=== PATIENT | female | born 1955 | race Caucasian/White ===

== ENCOUNTER 2019-10-19 13:57 | Outpatient (CLI) | payer BC, SELFPAY ==
--- NOTE | ~2019-10-19 | MM_ITS ---
EXAMINATION: MM screening shayan BI w monika HISTORY: Screening mammogram, family history of breast cancer in her sister. TECHNIQUE: Craniocaudal and mediolateral oblique 3-D tomosynthesis images were obtained and synthetic 2-D images were generated. CAD analysis was submitted and interpreted. COMPARISON: 08/25/2018, 07/25/2018 BREAST PARENCHYMAL COMPOSITION: There are scattered areas of fibroglandular density. FINDINGS: There is no evidence of suspicious mass, calcification, or architectural distortion to sugg est malignancy in either breast. There has been no suspicious interval change. IMPRESSION: 1. No mammographic evidence of malignancy. 2. Recommend routine screening mammography in one year. BI-RADS Category 1: Negative Reviewed, dictated and finalized at location A.
== END 2019-10-19 13:58 | disposition home or self-care (01) ==
LOC: ANHIMG 14:02
PROVIDERS: PCP Nurse Practitioner Family; Visit Provider Nurse Practitioner Family
DX: Z12.31 Encounter for screening mammogram for malignant neoplasm of breast (principal)
CPT/HCPCS: 77063; 77067

== ENCOUNTER 2020-10-24 10:35 | Outpatient (CLI) | payer BC, SELFPAY ==
--- NOTE | ~2020-10-24 | MM_ITS ---
EXAMINATION: MM screening shayan BI w monika HISTORY: Screening TECHNIQUE: Craniocaudal and mediolateral oblique 3-D tomosynthesis images were obtained and synthetic 2-D images were generated. CAD analysis was submitted and interpreted. COMPARISON: No prior mammogram is available for comparison at this institution. BREAST PARENCHYMAL COMPOSITION: The breasts are heterogeneously dense, which may obscure small masses . FINDINGS: There is no evidence of suspicious mass, calcification, or architectural distortion to sugg est malignancy in either breast. There has been no suspicious interval change. IMPRESSION: 1. No mammographic evidence of malignancy. 2. Recommend routine screening mammography in one year. BI-RADS Category 1: Negative Reviewed, dictated and finalized at location A.
== END 2020-10-24 10:36 | disposition home or self-care (01) ==
LOC: ANHIMG 10:38
PROVIDERS: PCP Nurse Practitioner Family; Visit Provider Nurse Practitioner Family
DX: Z12.31 Encounter for screening mammogram for malignant neoplasm of breast (principal)
CPT/HCPCS: 77063; 77067

== ENCOUNTER 2020-12-11 13:36 | Emergency (ER) | payer BC, SELFPAY ==
--- NOTE | ~2020-12-11 | XR_ITS ---
EXAMINATION: XR forearm RT 2V DATE: 12/11/2020 14:05 INDICATION: Right forearm injury and pain. TECHNIQUE: 2 views of right forearm were obtained. COMPARISON: None. FINDINGS: Bone alignment is normal. No visible fracture. There is mild osteoarthritis of first carpom etacarpal joint. There are enthesophytes at the medial and lateral humeral epicondyles. There is an e lbow joint effusion. IMPRESSION: 1. Elbow joint effusion. No fracture identified. Reviewed, dictated and finalized at location A.
--- NOTE | ~2020-12-11 | XR_ITS ---
EXAMINATION: XR hand RT min 3V DATE: 12/11/2020 14:51 INDICATION: Right hand pain. Fall. TECHNIQUE: 3 views of right hand were obtained. COMPARISON: None. FINDINGS: There is radial subluxation and angulation of the second, third, and fourth distal phalange s with respect to the middle phalanges. No fracture. There is mild osteoarthritis of first carpometac arpal joint. There is mild to moderate osteoarthritis of many of the metacarpophalangeal joints and i nterphalangeal joints. There is severe osteoarthritis of third metacarpophalangeal joint and second-f ifth distal interphalangeal joints. IMPRESSION: 1. Polyarticular osteoarthritis. Reviewed, dictated and finalized at location A.
[2020-12-11 13:51] VITALS: BP 127/71; PULSE 82; RESP 19; TEMP 36.3; O2SAT 100
--- NOTE | 2020-12-11 14:34 | ED.UPPEXIN ---
HPI - Extremity Injury (Upper) General Chief Complaint: Extremity Injury, Upper Stated Complaint: Right hand and arm Pain Time Seen by Provider: 12/11/20 14:25 Source: patient and RN notes reviewed Mode of arrival: ambulatory Limitations: no limitations History of Present Illness HPI narrative: 65 year old female who presents to [facility] care with complaints of falling last night and she tried to catch herself with outstretched arms and she reports landing on to her right arm. She reports pain from distal humerus to tips of her fingers on her right hand. Patient has no obvious deformity but pain with any movement, circulation and sensation is intact to her right arm.Patient is guarding her right arm. MD complaint: injury to: right, elbow, forearm and hand Onset (ago): day(s) (last night) Severity: moderate Severity scale (1-10): 5 Related Data Home Medications Medication Instructions Recorded Confirmed celecoxib 100 mg PO DAILY 12/11/20 12/11/20 ropinirole 0.25 mg PO DAILY 12/11/20 12/11/20 Allergies Allergy/AdvReac Type Severity Reaction Status Date / Time Sulfa (Sulfonamide Allergy Mild Unknown Verified 12/11/20 13:53 Antibiotics) Review of Systems Review of Systems: CONSTITUTIONAL: Denies fever, chills, or sweats. EYES: Denies visual changes, redness, or discharge. ENT: Denies rhinorrhea, congestion, sore throat, or otalgia. CARDIOVASCULAR: Denies chest pain, palpitations, or edema. RESPIRATORY: Denies cough or dyspnea. GASTROINTESTINAL: Denies abdominal pain, nausea, vomiting, or diarrhea. GENITOURINARY: Denies dysuria or hematuria. SKIN: Denies rash or itching. MUSCULOSKELETAL: Denies back pain, positive for right arm pain from distal humerus to tips of finger with increase pain with any movement. NEUROLOGIC: Denies headache, numbness, or weakness. PSYCHIATRIC: Denies anxiety or depression. All systems reviewed & are unremarkable except as noted in HPI and below PMFSH Past Medical History Medical History (Updated 12/16/20 @ 07:38 by Magdalene Shannon NP) Arthritis Restless leg syndrome Surgical History Surgical History (Updated 12/16/20 @ 07:41 by Magdalene Shannon NP) History of repair of right rotator cuff Hx of tonsillectomy Tubal ligation status Social History Social History (Updated 12/16/20 @ 07:41 by Magdalene Shannon NP) Smoking status: Never smoker Alcohol intake: current Alcohol use details: social Substance use: never Living arrangements: with family Gender identity (if verbalized by the patient): Female Comments At time of signature, agree with nursing past medical, surgical, social and family history. There is no relevant family history pertinent to the presenting complaint Exam Narrative: GENERAL: Well-appearing, well-nourished, and in no acute distress. HEAD: Normocephalic, atraumatic. EYES: PERRLA and EOMI. ENT: Nares clear, no rhinorrhea or epistaxis. Mucous membranes moist.TM's normal throat pink with no lesions or exudates, tonsils absent. NECK: Supple.no lymphadenopathy CHEST: Clear to auscultation. No respiratory distress.SAO2 100% on room air HEART: Regular rate and rhythm. No murmur heard. Normal peripheral pulses. ABDOMEN: Soft, nontender, nondistended, normal active bowel sounds. EXTREMITIES: Normal range of motion. No edema.Exception noted to right arm and hand which patient states pain from distal humerus to tips of fingers of right hand, strong pulses to right arm, nail beds have brisk capillary refill, no obvious deformity to right arm and hand, no numbness or tingling of right arm SKIN: Warm, dry, no rash. NEURO: No focal deficits. Alert and oriented x3. Course Vital Signs Vital signs: Vital Signs Temperature 36.3 C L 12/11/20 13:51 Pulse Rate 82 12/11/20 13:51 Respiratory Rate 19 12/11/20 13:51 Blood Pressure 127/71 12/11/20 13:51 Pulse Oximetry 100 12/11/20 13:51 Temperature 36.3 C L 12/11/20 13:51 Pulse Rate 82
== END 2020-12-11 15:32 | disposition home or self-care (01) ==
PROVIDERS: Emergency Provider Registered Nurse; PCP Nurse Practitioner Family
DX: M25.421 Effusion, right elbow (principal); M79.641 Pain in right hand; M19.90 Unspecified osteoarthritis, unspecified site; G25.81 Restless legs syndrome
CPT/HCPCS: 73090; 73130; 99213; G0463

== ENCOUNTER 2021-02-19 13:04 | Emergency (ER) | payer BC, SELFPAY ==
--- NOTE | ~2021-02-19 | XR_ITS ---
EXAMINATION: XR ankle RT min 3V INDICATION: Right ankle pain, initial encounter TECHNIQUE: Four views of the right ankle are obtained. COMPARISON: None available FINDINGS: There is an acute, traumatic, oblique fracture of the medial malleolus which extends to the level of the tibial plafond. There is an acute avulsion injury at the tip of the lateral malleolus. Soft tissue swelling surrounds the fractures. The ankle mortise is intact. No additional acute osseou s findings are evident. IMPRESSION: 1. Oblique fracture of the medial malleolus and avulsion fracture at the tip of the lateral malleolus . Reviewed, dictated and finalized at location A. GER COMPENSATION IMPRESSION: 1. Oblique fracture of the medial malleolus and avulsion fracture at the tip of the lateral malleolus.
[2021-02-19 13:14] VITALS: BP 143/70; PULSE 84; RESP 16; TEMP 36.6; O2SAT 98
--- NOTE | 2021-02-19 13:14 | ED.LOWEXIN ---
HPI - Extremity Injury (Lower) General Chief Complaint: Extremity Injury, Lower Stated Complaint: Right ankle Pain Time Seen by Provider: 02/19/21 13:15 Source: patient and RN notes reviewed Mode of arrival: ambulatory Limitations: no limitations History of Present Illness HPI Narrative: 65-year-old female presents to the [facility] with right ankle pain. Patient states that she missed a step and rolled her ankle inversely yesterday. Denies any neck pain or back pain. Denies hitting head or loss of consciousness. Patient states that she has been icing it and elevating it. Bruising swelling noted to the entire ankle both lateral and medial along with the foot. Sensation intact. Positive pedal pulse. Capillary refill under 2 seconds. Patient has a history of arthritis, denies any other past medical or surgical history Related Data Home Medications Medication Instructions Recorded Confirmed celecoxib 100 mg PO DAILY 12/11/20 02/19/21 ropinirole 0.25 mg PO DAILY 12/11/20 02/19/21 Allergies Allergy/AdvReac Type Severity Reaction Status Date / Time Sulfa (Sulfonamide Allergy Mild Unknown Verified 02/19/21 13:28 Antibiotics) tramadol Allergy Other Verified 02/19/21 13:44 Review of Systems Review of Systems: All systems reviewed & are unremarkable except as noted in HPI and below Constitutional: Constitutional: Reports no additional constitutional complaints, Denies chills and Denies fever(s) Eyes: Eyes: Reports no additional eye complaints ENT: Reports system reviewed and no additional complaints, except as documented Cardiovascular: Cardiovascular: Reports no additional cardiovascular complaints Respiratory: Respiratory: Reports no additional respiratory complaints Musculoskeletal: Musculoskeletal: Reports as per HPI, Reports arthralgias and Reports joint swelling Comments: Right ankle pain Integumentary/Breasts: Skin/Breast: Reports system reviewed and no additional complaints, except as docu Neurologic: Reports system reviewed and no additional complaints, except as documented Psychiatric: Psychiatric: Reports no additional psychiatric complaints Allergic/Immunologic: Allergic/Immunologic: Reports no additional allergic/immunologic complaints PMF Past Medical History Medical History (Updated 02/19/21 @ 13:43 by Colleen Shah) Arthritis Restless leg syndrome Surgical History Surgical History History of repair of right rotator cuff Hx of tonsillectomy Tubal ligation status Social History Social History Smoking status: Never smoker Alcohol intake: current Alcohol use details: social Substance use: never Gender identity (if verbalized by the patient): Female Comments At the time of my signature, I reviewed and agree with the nursing past medical, surgical, social, and family history. There is no relevant family history pertinent to the patient complaint. Exam Const: General: healthy appearing, no acute distress and alert Nutritional Appearance: well nourished Orientation/consciousness: patient oriented x3 Limitations: no limitations HENMT: Head: normal to inspection Ears: external ears normal Eyes: Pupils: Equal, round and reactive pupils present Neck: Neck: normal visual inspection, no lymphadenopathy and no meningeal signs Chest: Chest palpation & inspection: normal inspection of the chest Resp: Effort & Inspection: normal respiratory effort Cardio: Rate: regular rate Rhythm: regular rhythm Back/Spine/Pelvis: Back: no CVA tenderness Skin: General skin exam: normal color Wounds: no wounds Neuro: General: patient oriented x3, moves all extremities, no meningeal signs and no focal motor deficits Speech: normal speech Gait exam (Neuro): gait abnormal (Unable to bear weight right side due to right ankle pain) Extrem: General: normal to inspection Right lower
== END 2021-02-19 14:15 | disposition home or self-care (01) ==
PROVIDERS: Emergency Provider Nurse Practitioner; PCP Nurse Practitioner Family
DX: S82.54XA Nondisplaced fracture of medial malleolus of right tibia, initial encounter for closed fracture (principal); S82.61XA Displaced fracture of lateral malleolus of right fibula, initial encounter for closed fracture; X50.9XXA Other and unspecified overexertion or strenuous movements or postures, initial encounter; M19.90 Unspecified osteoarthritis, unspecified site; G25.81 Restless legs syndrome
CPT/HCPCS: 29515; 73610; 99214; G0463

== ENCOUNTER → 2021-10-12 08:58 | Outpatient (CLI) | payer BC, SELFPAY ==
--- NOTE | ~2021-10-12 | XR_ITS ---
XR cervical spine 4-5V DATE: 10/12/2021 11:04 INDICATION: Neck pain. No injury. TECHNIQUE: AP, open-mouth, odontoid, lateral and swimmer views COMPARISON: None FINDINGS: Diffuse osteopenia. There is 2.5 mm anterolisthesis and mild degenerative disc disease at C4-5. There is severe degenerative disc disease and minimal retrolisthesis at C5-6 and C6-7. There is degenerative change at the apophyseal joints throughout the cervical spine and prominent unc overtebral joint spurring bilaterally at C5-6 and C6-7. C1 and C2 are normally aligned and the odontoid process is intact. No fracture or dislocation, locked facet or prevertebral soft tissue swelling. IMPRESSION: Osteopenia No fracture is detected 2.5 mm anterolisthesis and mild degenerative disc disease at C4-5 Prominent cervical spondylosis, including severe degenerative disc disease and mild retrolisthesis at C5-6 and C6-7, degenerative change throughout the apophyseal joints and prominent uncovertebral join t spurring at C5-6 and C6-7 Reviewed, dictated and finalized at location A. IMPRESSION: Osteopenia No fracture is detected 2.5 mm anterolisthesis and mild degenerative disc disease at C4-5 Prominent cervical spondylosis, including severe degenerative disc disease and mild retrolisthesis at C5-6 and C6-7, degenerative change throughout the apophy seal joints and prominent uncovertebral joint spurring at C5-6 and C6-7
--- NOTE | ~2021-10-12 | XR_ITS ---
XR lumbar spine min 4V DATE: 10/12/2021 11:04 INDICATION: Back pain. No injury. TECHNIQUE: AP, lateral, coned lateral lumbosacral and bilateral oblique views COMPARISON: None FINDINGS: There is mild dextro scoliosis of the lumbar spine. Diffuse osteopenia. Degenerative spurring of lower thoracic spine Moderately severe degenerative disc disease at L1-2. Mild degenerative disc disease at L2-3 Moderately prominent degenerative disease at L3-4, L4-5 Severe degenerative disease at L5-S1. There is degenerative change at the apophyseal joints particularly the mid and lower lumbar and lumbo sacral area but no spondylolisthesis. No fracture or bone destruction is evident. The included lower thoracic and lumbar pedicles are intac t. The sacroiliac joints are intact. Abdominal aortic calcification without evidence of aneurysm. IMPRESSION: Mild lumbar dextro scoliosis Osteopenia Degenerative changes of the lower thoracic and lumbar spine, including multilevel degenerative disc d isease of the lumbar spine, most severe at L1-2, L3-4 and L5-S1 Reviewed, dictated and finalized at location A. IMPRESSION: Mild lumbar dextro scoliosis Osteopenia Degenerative changes of the lower thoracic and lumbar spine, including multilev el degenerative disc disease of the lumbar spine, most severe at L1-2, L3-4 and L5-S1
--- NOTE | ~2021-10-12 | XR_ITS ---
XR hand BI arthritis min 3V DATE: 10/12/2021 11:04 INDICATION: Osteoarthritis TECHNIQUE: 4 views of each hand COMPARISON: 12/11/2020 right hand FINDINGS: Right hand: Diffuse osteopenia. No fracture or dislocation, periosteal reaction or bone destruction, erosive change or chondrocalcino sis. There is polyarticular osteoarthritis including first carpometacarpal joint, first through fourth met acarpophalangeal joints, most severe at the third. There is osteoarthritic change at the interphalang eal joints, particularly distal interphalangeal joints. Again noted is radial mild subluxation at apex medial angulation at the distal interphalangeal joints of the second through fourth digits. Left hand: Diffuse osteopenia. Mild osteophytic change at the first carpometacarpal joint. There is osteophytic change at the second through fourth metacarpophalangeal joints, but likely the third. There is osteoporotic change at the interphalangeal joints, particularly distal interphalangeal joint s of the second through fifth digits. No fracture, dislocation, periosteal reaction or bone destruction, erosive change or chondrocalcinosi s. IMPRESSION: Polyarticular osteoarthritis Reviewed, dictated and finalized at location A.
--- NOTE | ~2021-10-12 | XR_ITS ---
XR sacroiliac joints min 3V DATE: 10/12/2021 11:04 INDICATION: Osteoarthritis TECHNIQUE: AP and bilateral oblique views of the sacroiliac joints COMPARISON: None FINDINGS: Dextroscoliosis of the lumbar spine. There is moderately severe degenerative disease at L3-4, moderate moderate degenerative disc disease L4-5 and severe degenerative disease at L5-S1. The pubic symphysis and sacral iliac joints are intact. No pelvic fracture or bone destruction is det ected. No fracture, dislocation, erosive change or ankylosis at the sacroiliac joints. IMPRESSION: Unremarkable sacroiliac joints Multilevel degenerative disc disease and dextroscoliosis of the lumbar spine Reviewed, dictated and finalized at Location A. Reviewed, dictated and finalized at location A.
== END ==
PROVIDERS: PCP Nurse Practitioner Family; Visit Provider Internal Medicine
DX: M19.041 Primary osteoarthritis, right hand (principal); M19.042 Primary osteoarthritis, left hand; M51.36 Other intervertebral disc degeneration, lumbar region; M85.88 Other specified disorders of bone density and structure, other site; M47.892 Other spondylosis, cervical region; M50.323 Other cervical disc degeneration at C6-C7 level
CPT/HCPCS: 72050; 72110; 72202; 73130

== ENCOUNTER 2021-12-27 13:35 | Outpatient (CLI) | payer BC, SELFPAY ==
--- NOTE | ~2021-12-27 | MM_ITS ---
EXAMINATION: MM screening shayan BI w monika HISTORY: Screening mammogram, family history of breast cancer in her sister. TECHNIQUE: Craniocaudal and mediolateral oblique 3-D tomosynthesis images were obtained and synthetic 2-D images were generated. CAD analysis was submitted and interpreted. COMPARISON: 10/24/2020, 10/19/2019, 08/25/2018, 07/25/2018 BREAST PARENCHYMAL COMPOSITION: The breasts are heterogeneously dense, which may obscure small masses . FINDINGS: There is no suspicious mass, calcification, or architectural distortion to suggest malignan cy in either breast. There has been no suspicious interval change. IMPRESSION: 1. No mammographic evidence of malignancy. 2. Recommend routine screening mammography in one year. BI-RADS Category 1: Negative Reviewed, dictated and finalized at location A.
== END 2021-12-27 13:36 | disposition home or self-care (01) ==
PROVIDERS: PCP Nurse Practitioner Family; Visit Provider Nurse Practitioner Family
DX: Z12.31 Encounter for screening mammogram for malignant neoplasm of breast (principal)
CPT/HCPCS: 77063; 77067

== ENCOUNTER → 2023-01-10 07:48 | Outpatient (CLI) | payer BC, SELFPAY ==
--- NOTE | ~2023-01-10 | MR_ITS ---
MRI of the right shoulder Technique: Axial proton-density fat-sat images, coronal proton density fat-sat and T2 fat-sat images, and sagittal T1-weighted and T2 fat-sat images were acquired. Clinical History: Injury Findings: There is moderate AC joint degenerative change. Probable prior subacromial decompression. C oracoclavicular, coracoacromial, and coracohumeral ligaments are intact. Supraspinatus and infraspinatus tendons are intact, without partial or full-thickness tear. There is evidence of prior rotator cuff repair surgery, with suture anchor at the humeral head/greater tuberos ity. Subscapularis tendon is intact. Tendon of long head of the biceps is intact. There is degenerative superior labral tearing extending to the posterior superior portion. There is moderate to severe glenohumeral joint degenerative change, with inferomedial humeral head os teophyte, chondromalacia, and subchondral cystic change at the superior glenoid. Inferior glenohumeral ligament is intact. No significant glenohumeral joint effusion seen. No fluid d istention of the subacromial/subdeltoid bursa. No muscle atrophy or edema. Impression: Evidence of prior rotator cuff repair surgery and prior subacromial decompression. No recurrent rotat or cuff tear seen. Degenerative labral tearing at the superior portion extending to the posterior superior aspect. Moderate to advanced glenohumeral joint degenerative change. Reviewed, dictated and finalized at [facility]. Impression: Evidence of prior rotator cuff repair surgery and prior subacromial decompressi on. No recurrent rotator cuff tear seen. Degenerative labral tearing at the superior portion extending to the posterior superior aspect. Moderate to advanced glenohumeral joint degenerative change.
== END ==
PROVIDERS: Visit Provider Nurse Practitioner Family
DX: S49.91XA Unspecified injury of right shoulder and upper arm, initial encounter (principal); X58.XXXA Exposure to other specified factors, initial encounter
CPT/HCPCS: 73221

== ENCOUNTER 2023-06-10 15:10 | Outpatient (CLI) | payer MEDICARE, SELFPAY ==
--- NOTE | ~2023-06-10 | MM_ITS ---
EXAMINATION: MM screening shayan BI w monika HISTORY: Screening mammogram TECHNIQUE: Craniocaudal and mediolateral oblique 3-D tomosynthesis images were obtained and synthetic 2-D images were generated. Exaggerated lateral craniocaudal view] CAD analysis was submitted and int erpreted. COMPARISON: 12/27/2021, 10/24/2020, 10/19/2019 bilateral screening mammogram examinations BREAST PARENCHYMAL COMPOSITION: The breasts are heterogeneously dense, which may obscure small masses . FINDINGS: There is no evidence of suspicious mass, calcification, or architectural distortion to sugg est malignancy in either breast. There has been no suspicious interval change. IMPRESSION: 1. No mammographic evidence of malignancy. 2. Recommend routine screening mammography in one year. BI-RADS Category 1: Negative Reviewed, dictated and finalized at location A. [employer]PER[employer]
== END 2023-06-10 15:11 | disposition home or self-care (01) ==
LOC: ANHIMG 15:15
PROVIDERS: PCP Nurse Practitioner Family; Visit Provider Nurse Practitioner Family
DX: Z12.31 Encounter for screening mammogram for malignant neoplasm of breast (principal)
CPT/HCPCS: 77063; 77067

== ENCOUNTER 2024-10-30 09:51 | Emergency (ER) | payer MEDICARE, SELFPAY ==
[2024-10-30 10:01] VITALS: BP 150/79; PULSE 89; RESP 16; TEMP 36.8; O2SAT 100
--- NOTE | 2024-10-30 10:08 | ED_ITS ---
HPI - Back Pain/Injury General Chief Complaint: Back Pain/Injury Stated Complaint: Severe Back Pain Time Seen by Provider: 10/30/24 09:55 Source: patient Mode of arrival: ambulatory Limitations: no limitations History of Present Illness HPI Narrative: Patient is a 69-year-old female who presents with low back pain for the last week. Patient reports it is radiating down left hip to the left maciel. Patient states she was putting sheets on bed when simply started. Patient had lumbar surgery/fusion in 2023. Patient states she was released by her surgeon if in June after 1 year. Patient is able to ambulate unassisted. Patient does report decreased sensation on her lateral left thigh but is still able to move and bear weight normally. Patient called her PCP today and was told she did any open appointments and come to urgent care Related Data Home Medications ?Medication ?Instructions ?Recorded ?Confirmed ?Last Taken ?Type ropinirole 0.25 mg tablet 0.25 mg PO DAILY 12/11/20 10/30/24 02/19/21 History 0.25 mg alendronate 70 mg tablet 70 mg PO WEEKLY 04/20/21 02/14/23 Unknown History celecoxib 100 mg capsule 100 mg PO BID 04/20/21 02/14/23 Unknown History buspirone 10 mg tablet mg 10/30/24 Unknown History cyclobenzaprine 10 mg tablet mg 10/30/24 Unknown History diclofenac sodium 75 mg mg PO 10/30/24 Unknown History tablet,delayed release lisinopril 30 mg tablet mg 10/30/24 Unknown History oxybutynin chloride 5 mg mg PO 10/30/24 Unknown History tablet,extended release 24 hr ropinirole 2 mg tablet mg 10/30/24 Unknown History Allergies Allergy/AdvReac Type Severity Reaction Status Date / Time Sulfa (Sulfonamide Allergy Mild Unknown Verified 10/30/24 10:06 Antibiotics) tramadol Allergy Other Verified 10/30/24 10:06 poison satya extract AdvReac Intermediate n/a Verified 10/30/24 10:06 Review of Systems Review of Systems: All systems reviewed & are unremarkable except as noted in HPI and below Constitutional: Constitutional: Denies body ache(s), Denies chills, Denies fatigue, Denies fever(s), Denies headache(s), Denies malaise and Denies weakness Eyes: Eyes: Denies blurry vision, Denies irritation and Denies loss of vision ENT: Denies otalgia, Denies headache(s), Denies nasal discharge, Denies sinus pain and Denies sore throat Cardiovascular: Cardiovascular: Denies chest pain, Denies irregular heart rhythm and Denies dyspnea Respiratory: Respiratory: Denies dyspnea Gastrointestinal: Gastrointestinal: Denies abdominal pain, Denies melena, Denies hematochezia, Denies diarrhea, Denies nausea and Denies vomiting Musculoskeletal: Musculoskeletal: Reports back pain, Denies myalgias, Denies arthralgias and Reports numbness (Left thigh) Integumentary/Breasts: Skin/Breast: Denies pruritus and Denies rash Neurologic: Denies headache(s), Denies loss of vision and Denies weakness Psychiatric: Psychiatric: Reports no additional psychiatric complaints Endocrine: Endocrine: Denies fatigue PMFSH Past Medical History Medical History Inflammatory arthritis 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 Restless leg syndrome Surgical History Surgical History Tubal ligation status History of repair of right rotator cuff Hx of tonsillectomy Family History Family History Father Hypertension Cerebrovascular accident Other Depression Sibling Breast cancer Social History Social History Smoking status: Never smoker Alcohol intake: current Alcohol use details: social Substance use: never Substance use type: does not use Lack of Transportation: No Lack of Food: Never True Current Housing: I Have Housing Concerned About Future Housing: No Difficulty Paying Gas/Electric Bills: No Difficulty Paying for Meds: No Currently Unemployed: No Education: Decline to Answer Difficulty w/ Childcare or Family Care: No Living arrangements: with family Occupation/Education: occupation Gender identity (if verbalized by the patient): Female Comments At time of signature, agree with nursing past medical, surgical, social and family history. There is no relevant family history pertinent to the presenting complaint. Exam Const: General: cooperative, healthy appearing, comfortable, no acute distress and well nourished Nutritional Appearance: well nourished Orientation/consciousness: patient oriented x3 Limitations: no limitations HENMT: Head: normal to inspection, normocephalic and atraumatic Ears: hearing grossly normal bilaterally and external ears normal Face/Nose/Sinus: Normal external nose present, normal facial exam and face symmetric Face and sinus: normal facial exam and face symmetric Mouth: Yes lip normal Eyes: General: appearance normal, both eyes and all related structures Alignment and Position: alignment normal and position normal Periorbital: periorbital findings normal Eyelids: eyelids normal Pupils: Equal, round and reactive pupils present EOM: EOMs intact bilaterally Neck: Neck: normal visual inspection, full ROM and supple Chest: Chest palpation & inspection: normal inspection of the chest Resp: Effort & Inspection: normal respiratory effort and able to speak in complete sentences Auscultation: clear to auscultation bilaterally Cardio: Rate: regular rate Rhythm: regular rhythm Heart sounds: S1 normal heart sound present and S2 normal heart sound present GI: Inspection: normal to inspection Back/Spine/Pelvis: Thoracic/Lumbar Spine: thoracic and lumbar spine normal to inspection, pain with thoraco-lumbar ROM, paraspinal muscle tenderness on the left in the lower lumbar, No thoracic spinal tenderness and No lumbar spinal tenderness Pelvis: buttock tenderness on the left Sacroiliac joints: on the left tender to palpation Skin: General skin exam: normal color and no rashes or lesions noted Neuro: General: patient oriented x3 and moves all extremities Cranial nerves: Yes Equal, round and reactive pupils present Speech: normal speech Gait exam (Neuro): Normal gait present Extrem: General: normal to inspection, full ROM and no edema Psych: Appearance: grossly normal and well kempt Mental Status: mental status grossly normal Speech and movement: Normal speech and movement present Affect: normal affect Attitude: cooperative Thought process: Normal thought process present Course Course Emergency Course: Patient is aware of diagnosis, understands and agrees to treatment plan. Anticipatory guidance given. Patient agrees to follow-up as directed and is aware of reasons to seek care at the emergency department. Portions of this record may have been created with voice recognition software Level of Care: Express Care Visit Vital Signs Vital signs: Vital Signs Temperature 36.8 C 10/30/24 10:01 Pulse Rate 89 10/30/24 10:01 Respiratory Rate 16 10/30/24 10:01 Blood Pressure 150/79 H 10/30/24 10:01 Pulse Oximetry 100 10/30/24 10:01 Oxygen Delivery Room Air 10/30/24 10:01 Temperature 36.8 C 10/30/24 10:01 Pulse Rate 89 10/30/24 10:01 Respiratory Rate 16 10/30/24 10:01 Blood Pressure 150/79 H 10/30/24 10:01 Pulse Oximetry 100 10/30/24 10:01 Oxygen Delivery Room Air 10/30/24 10:01 Reviewed MDM - Back Pain/Injury MDM Narrative Medical decision making narrative: Discussed in-depth about the need for close follow-up with PCP and potentially her spinal surgeon. Patient states she called her her spinal surgeon and they told her she was no longer an active patient and had to have a new referral by her PCP. Instructed patient to call and make an appointment for Saturday with her PCP. Patient has been taking Tylenol with no relief but is unable to take ibuprofen since she takes diclofenac. Patient did also have recent steroid course less than a month ago, will not repeat steroids. Will prescribe baclofen and lidocaine patches. Discussed risks and benefits of all medications. No risk factors or findings concerning for epidural abscess, diskitis, vertebral osteomyelitis, cord compression, cauda equina, vertebral fracture or bone malignancy, AAA, or pyelonephritis. Pt well hydrated appearing, in no respiratory distress, hemodynamically stable. Recommend supportive care. The patient is stable at time of discharge the clinical impression was discussed and the patient was given the opportunity to ask questions, which were addressed as completely as possible given the information available at present. Anticipatory guidance and return to care precautions were discussed and the importance of primary care follow-up was stressed and encouraged since she may require further imaging and workup. The patient voiced understanding of the plan, indications to return, and the need for follow-up Patient is appropriate for outpatient treatment and follow-up. Differential Diagnosis Differential diagnosis: Likely lumbar radiculopathy, sciatica and strain of lumbar region Medical Records Attestation: I reviewed the patient's medical records. Discharge Plan Discharge Clinical Impression: Lumbar radiculopathy Sciatica Qualifiers: Laterality: left Qualified Code(s): M54.32 - Sciatica, left side Patient Disposition: Home Condition: Stable Instructions: Sciatica (ED), Lumbar Radiculopathy (ED) Additional Instructions: Continue to take Tylenol and your home diclofenac, take muscle relaxers every 8 hours as needed for muscle spasm. do not drive or make any important decisions while on this medication for it can make you drowsy. Use lidocaine patches 12 hours on and 12 hours off. Exercise:Combine aerobic exercise, like walking or swimming, with specific exercises to keep the muscles in your back and abdomen strong and flexible.bed rest is not recommended. Proper Lifting:Be sure to lift heavy items with your legs, not your back. Do not bend over to pick something up. Keep your back straight and bend at your knees. Weight:Maintain a healthy weight. Being overweight puts added stress on your lower back. Avoid Smoking:Both the smoke and the nicotine cause your spine to age faster than normal. Proper Posture:Good posture is important for avoiding future problems. A therapist can teach you how to safely stand, sit, and lift. Use warm moist heat or ice to help with pain. Follow up with Primary provider in 2-3 days, This may become a chronic condition and they will be the one to help manage your pain and order additional testing. Follow-up with your doctor for further care and evaluation or seek ER if you develop problems with bladder/bowel function, weakness or loss of feeling in one or both of your legs. Your blood pressure was elevated above 120/80 today at Urgent Care. This puts you above the threshold for follow up visit with a primary care provider. High blood pressure does not usually cause any symptoms, however it may lead to kidney failure, stroke, heart disease just to name a few if untreated . Many people are anxious when seeing a provider or nurse. As a result, you are not diagnosed with hypertension at this time unless your blood pressure is persistently high at two office visits at least one week apart. Some things that can help lower blood pressure are lifestyle modifications, such as light exercise, decreased salt in diet, and weight loss. It is important to follow up with a PCP about this within 1 week. Patient Language: Occitan Prescriptions: New baclofen 10 mg tablet 10 mg PO TID 5 Days Qty: 15 0RF lidocaine 5 % adhesive patch,medicated 1 patch topical DAILY Qty: 15 0RF Rx Instructions: leave on most painful area for up to 12 hrs No Action cyclobenzaprine 10 mg tablet ropinirole 2 mg tablet buspirone 10 mg tablet lisinopril 30 mg tablet oxybutynin chloride 5 mg tablet extended release 24hr PO diclofenac sodium 75 mg tablet,delayed release (DR/EC) PO ropinirole 0.25 mg tablet 0.25 mg PO DAILY alendronate 70 mg tablet 70 mg PO WEEKLY celecoxib 100 mg capsule 100 mg PO BID hydroxychloroquine 200 mg tablet See Rx Instructions .ROUTE .COMPLEX Qty: 60 1RF Dose Instruction: TAKE 2 TABLETS BY MOUTH EVERY DAY Rx Instructions: TAKE 2 TABLETS BY MOUTH EVERY DAY duloxetine [Cymbalta] 60 mg capsule,delayed release(DR/EC) 60 mg PO BID Qty: 180 1RF Follow-up/Referrals: HOLLIS,JUDITH VASQUEZ [Primary Care Provider] - 3 Days Time of Disposition: 10:26
== END 2024-10-30 10:35 | disposition home or self-care (01) ==
PROVIDERS: Emergency Provider Nurse Practitioner Family; PCP Nurse Practitioner Family
DX: M54.16 Radiculopathy, lumbar region (principal); M54.32 Sciatica, left side; M15.9 Polyosteoarthritis, unspecified; G25.81 Restless legs syndrome
CPT/HCPCS: 99213; G0463